=== PATIENT | male | born 1940 | race Caucasian/White ===

== ENCOUNTER 2020-06-23 22:03 | Inpatient (IN) | payer OTHER, SELFPAY ==
[2020-06-23 22:04] VITALS: BP 113/88; PULSE 101; RESP 18; TEMP 37.2; O2SAT 95; BMI 29.9
--- NOTE | 2020-06-23 22:23 | CT_ITS ---
STUDY: CT BRAIN WITHOUT CONTRAST REASON FOR EXAM: Male, 79 years old. ALTERED MENTAL STATUS AND CONFUSION SINCE 5PM TODAY -- PRIOR HX OF TIA RADIATION DOSAGE (If Supplied By Facility): CTDIvol = ( 44.99 ) mGy, DLP = ( 1592.22 ) mGycm TECHNIQUE: Transaxial CT imaging of the brain was performed without administration of intravenous contrast material. Individualized dose optimization techniques were used for this CT. COMPARISON: No relevant priors. FINDINGS: Normal soft tissue structures. Normal calvarium. There is mild cerebral atrophy with widening of the extra-axial spaces and ventricular dilatation. There are old lacunar infarcts of the right basal ganglia and left insular lobe. There are areas of decreased attenuation within the white matter tracts of the supratentorial brain, consistent with microvascular disease changes. The thalami appear normal. Normal brainstem. There is mild cerebellar atrophy. There is no intracranial hemorrhage. There are no findings of an acute ischemic infarction. There is opacification of the left and right maxillary sinuses, left frontal sinus, and multiple ethmoid air cells bilaterally. CT/Brain/Head without Contrast IMPRESSION: Chronic involutional changes of the brain. Old lacunar infarcts of the right basal ganglia and left insular lobe. Severe chronic pansinusitis. Electronically Signed: Maurilio Vinse MD at 23:17 EDT , Service support ,
--- NOTE | 2020-06-23 22:23 | EKG12_ITS ---
Test Reason : DYSRHYTHMIA Blood Pressure : / mmHG Vent. Rate : 093 BPM Atrial Rate : 093 BPM P-R Int : 178 ms QRS Dur : 138 ms QT Int : 380 ms P-R-T Axes : 062 040 041 degrees QTc Int : 472 ms Normal sinus rhythm Right bundle branch block Abnormal ECG Confirmed by NISHA VALENTINO, HERI ([id number]), desk editor ADIN GALLO ([id number]) on 06/28/2020 8:26:39 AM Referred By: IVY Confirmed By:STEPH CAMERON MD
--- NOTE | 2020-06-23 22:24 | ED.DCSUM_ITS ---
History of Present Illness Chief Complaint: Confusion Informant: Patient, Family Onset: Today Context: - - noticed around 1800, 4-4.5 hrs prior to arrival Quality: disoriented, forgetful Current Severity: Moderate Maximum Severity: Moderate Worsened by: n/a Relieved by: n/a Associated Symptoms: right leg pain, generalized weakness Narrative: Patient lives with some family members, however the family member that accompanies him does not live with him, 1 of his sons. He states this is very u nusual for him, for him to be confused and disoriented, which started today. Patient has no complaints except for soreness in his right lower leg. He does not know how long it has felt that way. States he feels a little weak as well but denies all other review of systems. 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 He denies any feeling of differences right now. - Past Medical History (1) Stroke Status: Chronic (2) Infantile paralysis Status: Chronic Past Medical History - Allergies and Home Meds Allergies/Adverse Reactions: Allergies No Known Allergies Allergy (Verified 06/23/20 22:06) Primary Care Physician: [facility] Doctor,Out of [NON-STAFF] - Lives: With Family Alcohol: None Drugs: None Review of Systems General: Reports: Malaise. Denies: Chills, Fever, Sweats Eyes: Denies: Visual changes - bilaterally, Diplopia ENT: Reports: Rhinorrhea - Past day or 2. Denies: Bilateral ear pain, Sore throat Cardiovascular: Denies: Chest pain, Palpitations Respiratory: Denies: Dyspnea, Cough, Dyspnea on exertion, Orthopnea Gastrointestinal: Denies: Abdominal pain, Nausea, Vomiting, Diarrhea, Melena, Hematochezia Genitourinary: Denies: Dysuria, Hematuria, Frequency Musculoskeletal: Reports: Extremity Pain. Denies: Myalgias, Neck pain, Back pain Skin: Denies: Rash - Not the patient knows of, Abscess, Wounds Neurological: Denies: Headache, Weakness, Numbness Physical Exam Vital Signs/Narrative: Vital Signs Temp Pulse Resp BP Pulse Ox 06/23/20 22:04 98.9 F 101 H 18 113/88 H 95 NIH Stroke Scale/Score (NIHSS) from [facility] on 06/23/2020 All calculations should be rechecked by clinician prior to use RESULT SUMMARY: 2 points NIH Stroke Scale INPUTS: 1A: Level of consciousness ?> 0 = Alert; keenly responsive 1B: Ask month and age ?> 0 = Both questions right 1C: 'Blink eyes' & 'squeeze hands' ?> 0 = Performs both tasks 2: Horizontal extraocular movements ?> 0 = Normal 3: Visual chatman ?> 0 = No visual loss 4: Facial palsy ?> 0 = Normal symmetry 5A: Left arm motor drift ?> 0 = No drift for 10 seconds 5B: Right arm motor drift ?> 0 = No drift for 10 seconds 6A: Left leg motor drift ?> 0 = No drift for 5 seconds 6B: Right leg motor drift ?> 0 = No drift for 5 seconds 7: Limb Ataxia ?> 2 = Ataxia in 2 Limbs 8: Sensation ?> 0 = Normal; no sensory loss 9: Language/aphasia ?> 0 = Normal; no aphasia 10: Dysarthria ?> 0 = Normal 11: Extinction/inattention ?> 0 = No abnormality Inital Vital Signs reviewed: Yes General: Well nourished, Well developed, No Acute Distress Head: Normocephalic, Atraumatic Eyes: Perrl, EOMI ENT: Moist mucous membranes, No rhinorrhea Neck: Supple, Nontender Cardiovascular: Regular rate, Regular rhythm, No murmurs Respiratory: No distress, CTA bilaterally, Chest nontender Abdomen: Soft, Nontender, Nondistended, Normal bowel sounds Back: Nontender, Normal Inspection Extremities: Tenderness - Mild at erythema right lower leg consistent with cellulitis, Edema - Mild symmetric bilateral lower extremity mid arora. Negative for: Calf Tenderness Skin: Normal color, No Trauma, Rash - Mildly tender blanching erythema right lower leg, distal half. Does not involve the foot. No nidus for infection, no abscess. No lymphangitis. Neurological: Alert, Cranial nerves II-XII grossly intact, Normal Sensation, Disoriented - To the month and city he is in right now. Oriented to person, his age, state, and family., - - Has some trouble with [id number] on the right. Is apparently more because of confusion than ataxia however. Unable to perform bpnw-ss-calm bilaterally although strength is normal. No aphasia or dysarthria. NIHSS - 3 Psychological: Normal affect, Normal Mood Diagnostic/Tx/Re-eval Impressions Brain CT 06/23/20 22:23 IMPRESSION: Chronic involutional changes of the brain. Old lacunar infarcts of the right basal ganglia and left insular lobe. Severe chronic pansinusitis. Electronically Signed: Maurilio Vines MD at 23:17 EDT , Service support , Chest X-Ray 06/23/20 22:55 IMPRESSION: Borderline heart size. Calcified plaques of the aortic arch. There may be a small left-sided pleural effusion. Electronically Signed: Maurilio Vines MD at 23:14 EDT , Service support , 06/23/20 22:23 CT Brain [Brain/Head without Contrast] [CT] Stat 06/23/20 22:55 Chest 1 View (Portable) [RAD] Stat Laboratory Results 06/23/20 06/23/20 06/23/20 22:20 22:20 22:20 WBC 21.2 H RBC 4.38 L Hgb 14.3 Hct 43.3 MCV 98.9 H MCH 32.6 H MCHC 33.0 RDW Std Deviation 49.3 H RDW Coeff of Cameron 13.4 Plt Count 304 MPV 9.5 Immature Gran % (Auto) 0.600 Neut % (Auto) 87.3 H Lymph % (Auto) 2.9 L [place] % (Auto) 8.8 Eos % (Auto) 0.1 Baso % (Auto) 0.3 Absolute Neuts (auto) 18.6 H Absolute Lymphs (auto) 0.61 L Nucleated RBC % 0 Differential Comment SEE COMMENT Diff Path Review May foll Platelet Estimate ADEQUATE RBC Morphology N CHROM Anisocytosis RARE Macrocytosis RARE PT 13.8 INR 1.1 APTT 30.2 Sodium 138 Potassium 4.0 Chloride 107 Carbon Dioxide 25.0 Anion Gap 6 BUN 27 H Creatinine 1.20 Estim Creat Clear Calc 44.13 Est GFR (MDRD) Af Amer 75 Est GFR (MDRD) Non-Af 62 BUN/Creatinine Ratio 22.5 H Glucose 114 H Lactic Acid Calcium 8.8 Total Bilirubin 0.30 AST 16 ALT 22 Alkaline Phosphatase 98 Troponin I < 0.015 Total Protein 7.6 Albumin 3.7 Globulin 3.9 Albumin/Globulin Ratio 0.9 Urine Color Urine Clarity Urine pH Ur Specific [place] Urine Protein Urine Glucose (UA) Urine Ketones Urine Occult Blood Urine Nitrite Urine Bilirubin Urine Urobilinogen Ur Leukocyte Esterase Urine RBC Urine WBC Ur Squamous Epith Cells Urine Bacteria Urine Mucus 06/23/20 06/23/20 22:35 22:45 WBC RBC Hgb Hct MCV MCH MCHC RDW Std Deviation RDW Coeff of Cameron Plt Count MPV Immature Gran % (Auto) Neut % (Auto) Lymph % (Auto) [place] % (Auto) Eos % (Auto) Baso % (Auto) Absolute Neuts (auto) Absolute Lymphs (auto) Nucleated RBC % Differential Comment Diff Path Review Platelet Estimate RBC Morphology Anisocytosis Macrocytosis PT INR APTT Sodium Potassium Chloride Carbon Dioxide Anion Gap BUN Creatinine Estim Creat Clear Calc Est GFR (MDRD) Af Amer Est GFR (MDRD) Non-Af BUN/Creatinine Ratio Glucose Lactic Acid 1.6 Calcium Total Bilirubin AST ALT Alkaline Phosphatase Troponin I Total Protein Albumin Globulin Albumin/Globulin Ratio Urine Color Yellow Urine Clarity Clear Urine pH 5.0 Ur Specific [place] 1.015 Urine Protein 30 H Urine Glucose (UA) Normal Urine Ketones Negative Urine Occult Blood 25 H Urine Nitrite Negative Urine Bilirubin Negative Urine Urobilinogen Normal Ur Leukocyte Esterase Negative Urine RBC 0-5 SEEN Urine WBC 0-5 SEEN Ur Squamous Epith Cells 0 SEEN Urine Bacteria 0 SEEN Urine Mucus 0 SEEN - Rhythm Strip Rhythm Strip: Sinus Rhythm Rate: 93 Ectopy: None - EKG Initial EKG Interpretation: Sinus Rhythm, No Acute Injury Pattern, RBBB Prior: No Prior - Medical Decision Making Work-up shows a leukocytosis, imaging shows chronic abnormalities, possibly a small left-sided pleural effusion which I cannot auscultate any abnormality associated with. My suspicion is that he is altered due to infection, namely the cellulitis in his right lower leg. Started on Zosyn and plan is for admission. ED Disposition - Plan for ED Patient: Disposition: [facility] Diagnosis: Altered mental status, Cellulitis of right lower leg, Sepsis Referrals: [facility] Doctor,Out of [NON-STAFF] -
[2020-06-23 22:35] VITALS: O2SAT 95
[2020-06-23 22:36] LABS: Absolute Lymphocyte Count 0.61 X10^3/uL (0.83-4.51); Absolute Neutrophil Count 18.6 X10^3/uL (2.0-7.7); Basophil# 0.07 X10^3/uL; Basophil% 0.3 % (0-1); Eosinophil# 0.02 X10^3/uL; Eosinophils% 0.1 % (0-5); Hematocrit 43.3 % (40-54); Hemoglobin 14.3 g/dL (13.0-16.5); Lymphocyte # 0.61 X10^3/ul (4.0); Lymphocyte % 2.9 % (19-41); Mean Corpuscular Hgb 32.6 pg (27.0-32.0); Mean Corpuscular Volume 98.9 fL (80-94); Mean Platelet Vol. 9.5 fl (6.2-12.0); Monocyte# 1.86 X10^3/uL; Monocyte% 8.8 % (0-10); NRBC Flagged by Analyzer 0 % (0-5); Neutrophil # 18.55 X10^3/uL (2.7-7.7); Neutrophil % 87.3 % (47-70); POSITIVE DIFFERENTIAL YES; Platelet Count 304 K/mm3 (150-450); RBC Distribution Width CV 13.4 % (11.6-14.6); RBC Distribution Width SD 49.3 fl (35.1-43.9); Red Blood Count 4.38 M/mm3 (4.6-6.2); White Blood Count 21.2 K/mm3 (4.4-11.0)
[2020-06-23 22:40] LABS: Differential Indicated SCAN CRITERIA MET
[2020-06-23 22:41] LABS: International Normalized Ratio 1.1; Partial Thromboplast Time 30.2 Seconds (24.1-36.2); Prothrombin Time (Protime)PT. 13.8 SECONDS (11.7-14.9)
[2020-06-23] MEDS: 0.9% Normal Saline 1,000 ML 150 ML IV (22:45)
[2020-06-23 22:51] VITALS: BP 158/60; PULSE 92; RESP 16; O2SAT 95
[2020-06-23 22:52] LABS: ALB/GLOB Ratio 0.9 RATIO (0.9-2.4); AST(SGOT) 16 U/L (15-37); Alanine Aminotransfer ALT/SGPT 22 U/L (16-61); Albumin, Serum 3.7 g/dL (3.2-5.0); Alkaline Phosphatase 98 U/L (45-117); Anion Gap 6 (5-15); BUN 27 mg/dL (7-18); BUN/Creat Ratio 22.5 RATIO (10-20); Calcium,Total 8.8 mg/dL (8.5-10.1); Chloride 107 mmol/L (98-107); EST Glomerular Filtration Rate 62 mL/min (>60); Est Glom Filt Rate - Afr Amer 75 mL/min (>60); Estimated Creatinine Clearance 44.13 ml/min; Globulin 3.9 g/dL (2.2-4.2); Glucose 114 mg/dL (74-106); Protein, Total 7.6 g/dL (6.4-8.2); Sodium Level 138 mmol/L (136-145)
[2020-06-23 22:53] LABS: Bacteria 0 SEEN /hpf (None Seen); Mucous, Urine 0 SEEN /hpf (<or=2+); Squamous Epithelial Cells - UA 0 SEEN /hpf (0-5)
[2020-06-23 22:55] LABS: Color, Urine Yellow (Yellow); Glucose, Dipstick Normal (Normal); Ketone-Dipstick Negative (Negative); Leukocyte Esterase-Dipstick Negative /ul (Negative); Nitrite-Dipstick Negative (Negative); Occult Blood-Urine 25 /ul (Negative); Protein-Dipstick 30 mg/dl (Negative); Specific Gravity, Urine 1.015 (1.002-1.030); Urine Bilirubin Dipstick Negative (Negative); Urine Clarity Clear (Clear); Urine Urobilinogen Normal (Normal)
--- NOTE | 2020-06-23 22:55 | RAD_ITS ---
STUDY: X-RAY CHEST REASON FOR EXAM: Male, 79 years old. altered mental status TECHNIQUE: Single AP portable view of the chest. COMPARISON: None. FINDINGS: surveillance monitor leads are present. The lungs are clear and expanded. There may be a small left-sided effusion. There is borderline cardiomegaly. Normal mediastinum and wade. Normal visualized pulmonary arteries. There are calcified plaques of the aortic arch. Normal visualized thoracic spine. Normal visualized ribs, clavicles, and shoulders. There is no demonstrated abnormality of the visualized soft tissue structures of the upper abdomen. RAD/Chest 1 View (Portable) IMPRESSION: Borderline heart size. Calcified plaques of the aortic arch. There may be a small left-sided pleural effusion. Electronically Signed: Maurilio Vines MD at 23:14 EDT , Service support ,
[2020-06-23 23:03] LABS: Red Blood Cells-Urine 0-5 SEEN /hpf (0-5)
[2020-06-23 23:04] LABS: White Blood Cells 0-5 SEEN /hpf (0-5)
[2020-06-23 23:12] LABS: Anisocytosis RARE; Macrocytosis RARE; Platelet Estimate ADEQUATE (ADEQ); Red Cell Morphology N CHROM NORMAL (NORM C&C)
[2020-06-23 23:26] LABS: Lactic Acid 1.6 mmol/L (0.4-1.9)
[2020-06-23 23:40] VITALS: BP 157/64; PULSE 87; RESP 13; TEMP 37.4; O2SAT 93
[2020-06-24] VITALS (12 sets, daily range): BP systolic 113–163; BP diastolic 51–77; PULSE 59–96; RESP 16; TEMP 36.8–37.7; O2SAT 95–100; BMI 31.6
[2020-06-24] MEDS: Cefazolin 2 GM in 0.9% Normal Saline 100 ML IV (00:58)
--- NOTE | 2020-06-24 01:40 | HP.PCM_ITS ---
History of Present Illness Date of Admission: 06/24/20 Chief Complaint: Altered mental status The patient is a 79 year old M with PMH as below who presents with confusion from home. Started around 6 PM this evening. He states that he started noticing some redness on his right lower extremity with a little bit of pain for the last 2 days. He denies any fevers or chills and does know where he is and what year it is. In the ER his lactic acid was normal as was his creatinine. He did have an elevated white count of 21 and when he initially presented he was tachycardic. UA was unremarkable, chest x-ray did not show pneumonia. Brain CT was normal. Past Medical History Past Medical History (Chronic Problems): Chronic Problems Stroke (Chronic) Infantile paralysis (Chronic) Allergies No Known Allergies Allergy (Verified 06/23/20 22:06) Home Medications: Ambulatory Orders Medication Instructions Recorded Amlodipine [Norvasc] 5 mg PO DAILY 06/23/20 Aspirin [Aspirin, Baby] 81 mg PO DAILY@0800 06/23/20 Atorvastatin Calcium 10 mg PO DAILY 06/23/20 Hydrochlorothiazide [Hctz] 12.5 mg PO DAILY 06/23/20 Lisinopril 40 mg PO DAILY 06/23/20 Oxcarbazepine 300 mg PO TID 06/23/20 Surgical History: no surgical history Lives: With Family Smoking Status: Former smoker Tobacco Use: Cigarettes Alcohol: None Drugs: None - *Family History Maternal History Items: Heart Disease, Hypertension Paternal History Items: Stroke Review of Systems Constitutional: Denies: Chills, Fever, Weight Change HEENT: Denies: Head Aches, Sinus Congestion, Sinus Drainage Cardiovascular: Denies: Chest Pain, Palpitations Respiratory: Denies: Cough, Shortness of breath at rest, Sputum production Gastrointestinal: Denies: Abdominal Pain, Nausea, Vomiting Genitourinary: Denies: Dysuria Musculoskeletal: Denies: Joint Pain, Joint Tenderness Skin: Reports: Rash - Right lower extremity. Denies: Wounds Neurological: Reports: Confusion. Denies: Focal weakness, Numbness, Tingling Psychiatric: Denies: Anxiety, Depression Hematologic/ Lymphatic: Denies: Easy Bruising, Easy Bleeding VTE Information - Inpt Only VTE Present on Admission: No Patient Problems: Active and Suspected Problems Altered mental status (Acute) Cellulitis of right lower leg (Acute) Sepsis (Acute) - Physical Exam Vitals/I&O's: Vital Signs Temp Pulse Resp BP Pulse Ox 98.5 F 89 16 163/77 H 96 06/24/20 01:01 06/24/20 01:01 06/24/20 01:01 06/24/20 01:01 06/24/20 01:01 Oxygen Delivery Method Room Air Weight: 180 lb Body Mass Index (BMI) 29.9 General: Alert, Oriented x3, Cooperative, No apparent distress HEENT: Atraumatic, PERRLA, EOMI, Normocephalic Oral: Moist Mucosa Neck: Supple, No JVD Lungs: Clear to auscultation, Normal air movement, No rhonchi, No wheeze, No rales Cardiovascular: Regular rate, Regular Rhythm, Normal S1, Normal S2, No murmurs Abdomen: Soft, Non Tender, Non-Distended, No Hepato-splenomegaly Extremities: No edema, Capillary Refill Less than 3 Seconds Skin: Rash Present - Right lower extremity erythema extending from the ankle to mid arora Neurological: Neuro grossly intact, Sensory exam intact to light touch and pain Psych/Mental Status: Normal Affect, Appropriate Laboratory Results 06/23/20 22:20: WBC 21.2 H, RBC 4.38 L, Hgb 14.3, Hct 43.3, MCV 98.9 H, MCH 32.6 H, MCHC 33.0, RDW Std Deviation 49.3 H, RDW Coeff of Cameron 13.4, Plt Count 304, MPV 9.5, Immature Gran % (Auto) 0.600, Neut % (Auto) 87.3 H, Lymph % (Auto) 2.9 L, [place] % (Auto) 8.8, Eos % (Auto) 0.1, Baso % (Auto) 0.3, Absolute Neuts (auto) 18.6 H, Absolute Lymphs (auto) 0.61 L, Nucleated RBC % 0, Differential Comment SEE COMMENT, Diff Path Review January foll, Platelet Estimate ADEQUATE, RBC Morphology N CHROM, Anisocytosis RARE, Macrocytosis RARE 06/23/20 22:20: PT 13.8, INR 1.1, APTT 30.2 06/23/20 22:20: Sodium 138, Potassium 4.0, Chloride 107, Carbon Dioxide 25.0, Anion Gap 6, BUN 27 H, Creatinine 1.20, Estim Creat Clear Calc 44.13, Est GFR (MDRD) Af Amer 75, Est GFR (MDRD) Non-Af 62, BUN/Creatinine Ratio 22.5 H, Glucose 114 H, Calcium 8.8, Total Bilirubin 0.30, AST 16, ALT 22, Alkaline Phosphatase 98, Troponin I < 0.015, Total Protein 7.6, Albumin 3.7, Globulin 3.9, Albumin/Globulin Ratio 0.9 06/23/20 22:35: Lactic Acid 1.6 06/23/20 22:45: Urine Color Yellow, Urine Clarity Clear, Urine pH 5.0, Ur Specific [place] 1.015, Urine Protein 30 H, Urine Glucose (UA) Normal, Urine Ketones Negative, Urine Occult Blood 25 H, Urine Nitrite Negative, Urine Bilirubin Negative, Urine Urobilinogen Normal, Ur Leukocyte Esterase Negative, Urine RBC 0-5 SEEN, Urine WBC 0-5 SEEN, Ur Squamous Epith Cells 0 SEEN, Urine Bacteria 0 SEEN, Urine Mucus 0 SEEN Current Medications Sodium Chloride () 1,000 mls @ 150 mls/hr IV .Q6H40M [facility] Last Admin: 06/23/20 22:45 Dose: 150 mls/hr Documented by: Assessment/Plan All Active Problems Altered mental status (Acute) Cellulitis of right lower leg (Acute) Sepsis (Acute) 1. Sepsis secondary to right lower extremity cellulitis, sepsis has resolved/altered mental status also resolved -He did get a dose of Ancef in the ER, will continue -White blood cell count of 21,000 -Continue with IV fluids -UA was unremarkable but urine culture is pending -Blood cultures are pending 2. HTN/HLD/history of CVA -Blood pressure stable, can continue with Norvasc, hydrochlorothiazide, lisinopril -Continue with Lipitor 3. Seizure disorder -Stable -Continue with oxcarbazepine DVT: Lovenox Inpatient E&M: 51056 Init Hosp L2
[2020-06-24] MEDS: 0.9% Normal Saline 1,000 ML 100 ML IV ×3 (02:00→21:08)
[2020-06-24] MEDS: Acetaminophen 325 MG Tablet 650 MG PO (02:43)
[2020-06-24] MEDS: MELATONIN 3 MG TABLET PO ×2 (02:43→21:10)
[2020-06-24 06:05] LABS: Absolute Lymphocyte Count 1.16 X10^3/uL (0.83-4.51); Absolute Neutrophil Count 19.6 X10^3/uL (2.0-7.7); Basophil# 0.07 X10^3/uL; Basophil% 0.3 % (0-1); Eosinophil# 0.17 X10^3/uL; Eosinophils% 0.7 % (0-5); Hematocrit 36.9 % (40-54); Hemoglobin 12.2 g/dL (13.0-16.5); Lymphocyte # 1.16 X10^3/ul (4.0); Lymphocyte % 4.9 % (19-41); Mean Corp Hgb Conc 33.1 g/dL (32-36); Mean Corpuscular Hgb 32.4 pg (27.0-32.0); Mean Corpuscular Volume 98.1 fL (80-94); Mean Platelet Vol. 9.4 fl (6.2-12.0); Monocyte# 2.37 X10^3/uL; Monocyte% 10.1 % (0-10); NRBC Flagged by Analyzer 0 % (0-5); Neutrophil # 19.56 X10^3/uL (2.7-7.7); Neutrophil % 83.4 % (47-70); POSITIVE DIFFERENTIAL YES; POSITIVE MORPHOLOGY YES; Platelet Count 245 K/mm3 (150-450); RBC Distribution Width CV 13.5 % (11.6-14.6); RBC Distribution Width SD 49.1 fl (35.1-43.9); Red Blood Count 3.76 M/mm3 (4.6-6.2); White Blood Count 23.5 K/mm3 (4.4-11.0)
[2020-06-24 06:08] LABS: Differential Indicated SCAN CRITERIA MET
[2020-06-24] MEDS: Cefazolin 1 GM/50 ML BAG IV (06:08)
[2020-06-24] MEDS: OXcarbazepine 300 MG Tablet PO ×3 (06:10→21:06)
[2020-06-24] MEDS: Oxymetazoline 0.05% 1 SPRAY SPRAY.BTL NASAL ×2 (06:23→21:10)
[2020-06-24 06:27] LABS: Anion Gap 6 (5-15); BUN 25 mg/dL (7-18); BUN/Creat Ratio 22.3 RATIO (10-20); Calcium,Total 8.1 mg/dL (8.5-10.1); Chloride 109 mmol/L (98-107); Creatinine, Serum 1.12 mg/dL (0.70-1.30); EST Glomerular Filtration Rate 67 mL/min (>60); Est Glom Filt Rate - Afr Amer 81 mL/min (>60); Estimated Creatinine Clearance 47.28 ml/min; Glucose 111 mg/dL (74-106); Potassium 3.6 mmol/L (3.5-5.1); Sodium Level 139 mmol/L (136-145)
[2020-06-24 06:30] LABS: Differential Comment SCANNED
[2020-06-24] MEDS: Aspirin 81 MG TAB.CHEW PO (08:56)
[2020-06-24] MEDS: Enoxaparin 40 MG/0.4 ML Syringe SC (08:57)
[2020-06-24] MEDS: hydroCHLOROthiazide 12.5mg 12.5 MG PO (08:57)
[2020-06-24] MEDS: amLODIPine 5 MG Tablet PO (08:57)
[2020-06-24] MEDS: Lisinopril 40 MG Tablet PO (08:57)
--- NOTE | 2020-06-24 12:31 | PCM.PROGNOTE ---
Patient Problems: Active and Suspected Problems Altered mental status (Acute) Cellulitis of right lower leg (Acute) Sepsis (Acute) Subjective: Patient seen and examined. Reports significant improvement in right lower extremity redness. Decreased pain. Denies further fever, chills. - Physical Exam Vitals/I&O's: Vital Signs Temp Pulse Resp BP Pulse Ox 98.9 F 75 16 154/64 H 96 06/24/20 07:48 06/24/20 10:52 06/24/20 07:48 06/24/20 07:48 06/24/20 07:48 Oxygen Delivery Method Room Air Weight: 189 lb 13.088 oz Body Mass Index (BMI) 31.6 Intake and Output for Last 24 Hours 06/22/20 06/23/20 06/24/20 23:59 23:59 23:59 Intake Total 2425 / 2425 Output Total 150 / 150 Balance 2275 / 2275 General: Alert, Oriented x3, Cooperative HEENT: Atraumatic, PERRLA, EOMI, Normocephalic Neck: Supple, No JVD, Negative Carotid Bruits Lungs: Clear to auscultation, Normal air movement Cardiovascular: Regular rate, No murmurs Abdomen: Bowel Sounds Present, Soft, Non Tender, Non-Distended Extremities: No clubbing, No cyanosis, No edema, Capillary Refill Less than 3 Seconds Skin: - - Right lower extremity redness and warmth, improving. Musculoskeletal: No Tenderness to Palpation of Joints or Extremities Neurological: Cranial nerves II-XII grossly intact, - - Chronic right-sided hemiparesis Psych/Mental Status: Normal Affect Laboratory Results 06/23/20 22:20: WBC 21.2 H, RBC 4.38 L, Hgb 14.3, Hct 43.3, MCV 98.9 H, MCH 32.6 H, MCHC 33.0, RDW Std Deviation 49.3 H, RDW Coeff of Cameron 13.4, Plt Count 304, MPV 9.5, Immature Gran % (Auto) 0.600, Neut % (Auto) 87.3 H, Lymph % (Auto) 2.9 L, [place] % (Auto) 8.8, Eos % (Auto) 0.1, Baso % (Auto) 0.3, Absolute Neuts (auto) 18.6 H, Absolute Lymphs (auto) 0.61 L, Nucleated RBC % 0, Differential Comment SEE COMMENT, Diff Path Review January ferny, Platelet Estimate ADEQUATE, RBC Morphology N CHROM, Anisocytosis RARE, Macrocytosis RARE 06/23/20 22:20: PT 13.8, INR 1.1, APTT 30.2 06/23/20 22:20: Sodium 138, Potassium 4.0, Chloride 107, Carbon Dioxide 25.0, Anion Gap 6, BUN 27 H, Creatinine 1.20, Estim Creat Clear Calc 44.13, Est GFR (MDRD) Af Amer 75, Est GFR (MDRD) Non-Af 62, BUN/Creatinine Ratio 22.5 H, Glucose 114 H, Calcium 8.8, Total Bilirubin 0.30, AST 16, ALT 22, Alkaline Phosphatase 98, Troponin I < 0.015, Total Protein 7.6, Albumin 3.7, Globulin 3.9, Albumin/Globulin Ratio 0.9 06/23/20 22:35: Lactic Acid 1.6 06/23/20 22:45: Urine Color Yellow, Urine Clarity Clear, Urine pH 5.0, Ur Specific [place] 1.015, Urine Protein 30 H, Urine Glucose (UA) Normal, Urine Ketones Negative, Urine Occult Blood 25 H, Urine Nitrite Negative, Urine Bilirubin Negative, Urine Urobilinogen Normal, Ur Leukocyte Esterase Negative, Urine RBC 0-5 SEEN, Urine WBC 0-5 SEEN, Ur Squamous Epith Cells 0 SEEN, Urine Bacteria 0 SEEN, Urine Mucus 0 SEEN 06/24/20 05:25: WBC 23.5 H, RBC 3.76 L, Hgb 12.2 L, Hct 36.9 L, MCV 98.1 H, MCH 32.4 H, MCHC 33.1, RDW Std Deviation 49.1 H, RDW Coeff of Cameron 13.5, Plt Count 245, MPV 9.4, Immature Gran % (Auto) 0.600, Neut % (Auto) 83.4 H, Lymph % (Auto) 4.9 L, [place] % (Auto) 10.1 H, Eos % (Auto) 0.7, Baso % (Auto) 0.3, Absolute Neuts (auto) 19.6 H, Absolute Lymphs (auto) 1.16, Nucleated RBC % 0, Differential Comment SCANNED, Diff Path Review Jayleen isaacs 06/24/20 05:25: Sodium 139, Potassium 3.6, Chloride 109 H, Carbon Dioxide 24.0, Anion Gap 6, BUN 25 H, Creatinine 1.12, Estim Creat Clear Calc 47.28, Est GFR (MDRD) Af Amer 81, Est GFR (MDRD) Non-Af 67, BUN/Creatinine Ratio 22.3 H, Glucose 111 H, Calcium 8.1 L Current Medications Acetaminophen (Tylenol) 650 mg PO Q6H PRN PRN PRN Reason: Pain Score 1-10/Temp > 100.7 F Last Admin: 06/24/20 02:43 Dose: 650 mg Documented by: Amlodipine Besylate (Norvasc) 5 mg PO DAILY [facility] Last Admin: 06/24/20 08:57 Dose: 5 mg Documented by: Aspirin (Aspirin, Baby) 81 mg PO DAILY@0800 [facility] Last Admin: 06/24/20 08:56 Dose: 81 mg Documented by: Atorvastatin Calcium (Lipitor) 10 mg PO QHS [facility] Enoxaparin Sodium (Lovenox) 40 mg SC DAILY [facility] Last Admin: 06/24/20 08:57 Dose: 40 mg Documented by: Hydrochlorothiazide () 12.5 mg PO DAILY [facility] Last Admin: 06/24/20 08:57 Dose: 12.5 mg Documented by: Sodium Chloride () 1,000 mls @ 100 mls/hr IV .Q10H [facility] Last Admin: 06/24/20 11:39 Dose: 100 mls/hr Documented by: Cefazolin Sodium () 1 gm in 50 mls @ 100 mls/hr IV Q8 [facility] Last Infusion: 06/24/20 07:24 Dose: Infused Documented by: Lisinopril (Zestril) 40 mg PO DAILY [facility] Last Admin: 06/24/20 08:57 Dose: 40 mg Documented by: Melatonin (Melatonin) 3 mg PO QHS PRN PRN PRN Reason: INSOMNIA Last Admin: 06/24/20 02:43 Dose: 3 mg Documented by: Ondansetron HCl (Zofran) 4 mg IV Q8H PRN PRN PRN Reason: NAUSEA/VOMITING Oxcarbazepine (Trileptal) 300 mg PO TID [facility] Last Admin: 06/24/20 06:10 Dose: 300 mg Documented by: Oxymetazoline HCl (Afrin (Bkc)) 1 spray NASAL BID PRN PRN Reason: SINUS CONGESTION Last Admin: 06/24/20 06:23 Dose: 1 spray Documented by: Sodium Chloride () 10 - 40 ml IV UD PRN PRN Reason: SALINE FLUSH Medical Necessity - Tobacco Use Smoking Status: Former smoker Tobacco Use: Cigarettes Assessment/Plan All Active Problems Altered mental status (Acute) Cellulitis of right lower leg (Acute) Sepsis (Acute) 1. Sepsis secondary to right lower extremity cellulitis-improving. Continue IV Rocephin. Blood cultures pending. PRN pain regimen. 2. Acute infectious encephalopathy-secondary to #1. Improved. Continue treatment per above. 3. History of CVA-chronic right-sided hemiplegia. Continue aspirin, statin. PT/OT. 4. Hypertension-stable, continue amlodipine, HCTZ, lisinopril. 5. Hyperlipidemia-continue statin. 6. History of seizures-on oxcarbazepine. DVT prophylaxis-Lovenox subcu This patient was seen by ANGELY Resendiz under the supervision of Dr. Rivera.
[2020-06-24] MEDS: Atorvastatin Calcium 10 MG Tablet PO (21:06)
[2020-06-25] VITALS: BP 133/62; PULSE 76; RESP 14; TEMP 36.8; O2SAT 95
[2020-06-25 05:47] LABS: Hematocrit 37.6 % (40-54); Hemoglobin 12.4 g/dL (13.0-16.5); Mean Corpuscular Hgb 32.9 pg (27.0-32.0); Mean Corpuscular Volume 99.7 fL (80-94); Mean Platelet Vol. 9.2 fl (6.2-12.0); Platelet Count 245 K/mm3 (150-450); RBC Distribution Width CV 13.6 % (11.6-14.6); RBC Distribution Width SD 49.7 fl (35.1-43.9); Red Blood Count 3.77 M/mm3 (4.6-6.2); White Blood Count 14.7 K/mm3 (4.4-11.0)
[2020-06-25 06:00] VITALS: BP 145/69; PULSE 73; RESP 18; TEMP 36.9; O2SAT 97
[2020-06-25 06:02] LABS: Anion Gap 5 (5-15); BUN 22 mg/dL (7-18); BUN/Creat Ratio 23.8 RATIO (10-20); Calcium,Total 8.1 mg/dL (8.5-10.1); Chloride 109 mmol/L (98-107); Creatinine, Serum 0.92 mg/dL (0.70-1.30); EST Glomerular Filtration Rate 84 mL/min (>60); Est Glom Filt Rate - Afr Amer 102 mL/min (>60); Estimated Creatinine Clearance 57.56 ml/min; Glucose 104 mg/dL (74-106); Potassium 3.8 mmol/L (3.5-5.1); Sodium Level 139 mmol/L (136-145)
[2020-06-25] MEDS: OXcarbazepine 300 MG Tablet PO (06:29)
[2020-06-25] MEDS: 0.9% Normal Saline 1,000 ML 100 ML IV (06:42)
[2020-06-25 06:59] VITALS: PULSE 66
[2020-06-25] MEDS: Aspirin 81 MG TAB.CHEW PO (07:56)
[2020-06-25] MEDS: Lisinopril 40 MG Tablet PO (09:23)
[2020-06-25] MEDS: amLODIPine 5 MG Tablet PO (09:23)
[2020-06-25] MEDS: hydroCHLOROthiazide 12.5mg 12.5 MG PO (09:23)
[2020-06-25] MEDS: Enoxaparin 40 MG/0.4 ML Syringe SC (09:27)
[2020-06-25 10:37] VITALS: BP 121/50; PULSE 79; RESP 20; TEMP 36.7; O2SAT 96
--- NOTE | 2020-06-25 10:51 | DCINST_ITS ---
- Discharge Diagnoses Current Active Problems: Current Active and Chronic Problems Altered mental status (Acute) Cellulitis of right lower leg (Acute) Sepsis (Acute) You will use the following diet at home:: Cardiac Discharge Activity: Return to Normal Activity Call your doctor if you observe: Fever of 101 or Higher, Shortness of breath, Dizziness, Fainting spells, Chest pain Allergies/Adverse Reactions: Allergies No Known Allergies Allergy (Verified 06/23/20 22:06) Medications to take at Discharge Amlodipine [Norvasc] 5 mg PO DAILY 06/23/20 Aspirin [Aspirin, Baby] 81 mg PO DAILY@0800 06/23/20 Atorvastatin Calcium 10 mg PO DAILY 06/23/20 Hydrochlorothiazide [Hctz] 12.5 mg PO DAILY 06/23/20 Lisinopril 40 mg PO DAILY 06/23/20 Oxcarbazepine 300 mg PO TID 06/23/20 Cefadroxil Hydrate [Duricef] 1,000 mg PO BID 7 Days #28 cap 06/25/20 The following prescriptions were given: Cefadroxil Hydrate [Duricef] 1,000 mg PO BID 7 Days #28 cap Transmission Status: Pending to [facility] Primary Care Physician: Shelley Doctor,Out of [NON-STAFF] - Please follow up with your Primary Care Physician in: 1 Week Test Results: Test results from this visit will be discussed in further detail at your follow- up appointment, if applicable. Proposed Discharge Date: 06/25/20
--- NOTE | 2020-06-25 10:53 | DS.PCM_ITS ---
<Maryanne Larsen DOCUMENTATION NURSE - Last Filed: 06/25/20 10:58> Discharge Date and Diagnosis Date of Admission: 06/24/20 Date of Discharge: 06/25/20 - Primary Discharge Diagnosis Acute Problems: Active Problems 1. Sepsis secondary to right lower extremity cellulitis 2. Acute infectious encephalopathy 3. History of CVA-chronic mild right-sided hemiplegia. 4. Hypertension 5. Hyperlipidemia 6. History of seizures - Secondary Discharge Diagnosis Chronic Problems: Chronic Problems Stroke (Chronic) Infantile paralysis (Chronic) Hospital Course and Treatment Imaging Results: Diagnostic Data Brain CT 06/23/20 22:23 IMPRESSION: Chronic involutional changes of the brain. Old lacunar infarcts of the right basal ganglia and left insular lobe. Severe chronic pansinusitis. Electronically Signed: Maurilio Vines MD at 23:17 EDT , Service support , Chest X-Ray 06/23/20 22:55 IMPRESSION: Borderline heart size. Calcified plaques of the aortic arch. There may be a small left-sided pleural effusion. Electronically Signed: Maurilio Vines MD at 23:14 EDT , Service support , Operations: None Procedures: None Summary of Care Provided: The patient is a 79 year old M admitted 06/24/2020 due to altered mental status and right lower extremity redness. 1. Sepsis secondary to right lower extremity cellulitis-improved. IV Rocephin during admission. Blood culture showed no growth so far. Right lower extremity redness and warmth significantly improved. Discharged on Duricef 1000 mg twice daily to complete course. 2. Acute infectious encephalopathy-secondary to #1. Now at baseline. 3. History of CVA-chronic right-sided hemiplegia. Continue aspirin, statin. 4. Hypertension-stable, continue amlodipine, HCTZ, lisinopril. 5. Hyperlipidemia-continue statin. 6. History of seizures-on oxcarbazepine. General: Alert, Oriented x3, Cooperative HEENT: Atraumatic, PERRLA, EOMI, Normocephalic Neck: Supple, No JVD, Negative Carotid Bruits Lungs: Clear to auscultation, Normal air movement Cardiovascular: Regular rate, No murmurs Abdomen: Bowel Sounds Present, Soft, Non Tender, Non-Distended Extremities: No clubbing, No cyanosis, No edema, Capillary Refill Less than 3 Seconds Skin: - - Right lower extremity redness and warmth, improving. Musculoskeletal: No Tenderness to Palpation of Joints or Extremities Neurological: Cranial nerves II-XII grossly intact, Chronic right-sided hemiparesis, mild Psych/Mental Status: Normal Affect Patient seen and examined prior to discharge. Physical assessment as noted above. Patient is stable for discharge with follow up recommendations as noted above. This patient was seen by ANGELY Resendiz under the supervision of Dr. King. - Physical Exam Vitals/I&O's: Vital Signs Temp Pulse Resp BP Pulse Ox 98.1 F 79 20 H 121/50 H 96 06/25/20 10:37 06/25/20 10:37 06/25/20 10:37 06/25/20 10:37 06/25/20 10:37 Oxygen Delivery Method Room Air Weight: 189 lb 13.088 oz Body Mass Index (BMI) 31.6 Intake and Output for Last 24 Hours 06/23/20 06/24/20 06/25/20 23:59 23:59 23:59 Intake Total 4563.33 / 4563.33 1006.67 / 1006.67 Output Total 150 / 425 675 / 675 Balance 4413.33 / 4138.33 331.67 / 331.67 Laboratory Results 06/25/20 05:25: WBC 14.7 H, RBC 3.77 L, Hgb 12.4 L, Hct 37.6 L, MCV 99.7 H, MCH 32.9 H, MCHC 33.0, RDW Std Deviation 49.7 H, RDW Coeff of Cameron 13.6, Plt Count 245, MPV 9.2 06/25/20 05:25: Sodium 139, Potassium 3.8, Chloride 109 H, Carbon Dioxide 25.0, Anion Gap 5, BUN 22 H, Creatinine 0.92, Estim Creat Clear Calc 57.56, Est GFR (MDRD) Af Amer 102, Est GFR (MDRD) Non-Af 84, BUN/Creatinine Ratio 23.8 H, Glucose 104, Calcium 8.1 L Current Medications Acetaminophen (Tylenol) 650 mg PO Q6H PRN PRN PRN Reason: Pain Score 1-10/Temp > 100.7 F Last Admin: 06/24/20 02:43 Dose: 650 mg Documented by: Amlodipine Besylate (Norvasc) 5 mg PO DAILY [facility] Last Admin: 06/25/20 09:23 Dose: 5 mg Documented by: Aspirin (Aspirin, Baby) 81 mg PO DAILY@0800 [facility] Last Admin: 06/25/20 07:56 Dose: 81 mg Documented by: Atorvastatin Calcium (Lipitor) 10 mg PO QHS [facility] Last Admin: 06/24/20 21:06 Dose: 10 mg Documented by: Enoxaparin Sodium (Lovenox) 40 mg SC DAILY [facility] Last Admin: 06/25/20 09:27 Dose: 40 mg Documented by: Hydrochlorothiazide () 12.5 mg PO DAILY [facility] Last Admin: 06/25/20 09:23 Dose: 12.5 mg Documented by: Sodium Chloride () 1,000 mls @ 100 mls/hr IV .Q10H [facility] Last Admin: 06/25/20 06:42 Dose: 100 mls/hr Documented by: Ceftriaxone Sodium 2 gm/ (Sodium Chloride) 50 mls @ 100 mls/hr IV Q24 [facility] Last Infusion: 06/25/20 10:00 Dose: Infused Documented by: Lisinopril (Zestril) 40 mg PO DAILY [facility] Last Admin: 06/25/20 09:23 Dose: 40 mg Documented by: Melatonin (Melatonin) 3 mg PO QHS PRN PRN PRN Reason: INSOMNIA Last Admin: 06/24/20 21:10 Dose: 3 mg Documented by: Ondansetron HCl (Zofran) 4 mg IV Q8H PRN PRN PRN Reason: NAUSEA/VOMITING Oxcarbazepine (Trileptal) 300 mg PO TID [facility] Last Admin: 06/25/20 06:29 Dose: 300 mg Documented by: Oxymetazoline HCl (Afrin (Bkc)) 1 spray NASAL BID PRN PRN Reason: SINUS CONGESTION Last Admin: 06/24/20 21:10 Dose: 1 spray Documented by: Sodium Chloride () 10 - 40 ml IV UD PRN PRN Reason: SALINE FLUSH Discharge Diet: Low fat/ Low Cholesterol Discharge Activity: Return to Normal Activity Call your doctor if you observe: Fever of 101 or Higher, Shortness of breath, Dizziness, Fainting spells, Chest pain Home Medications: Medications to take at Discharge Amlodipine [Norvasc] 5 mg PO DAILY 06/23/20 Aspirin [Aspirin, Baby] 81 mg PO DAILY@0800 06/23/20 Atorvastatin Calcium 10 mg PO DAILY 06/23/20 Hydrochlorothiazide [Hctz] 12.5 mg PO DAILY 06/23/20 Lisinopril 40 mg PO DAILY 06/23/20 Oxcarbazepine 300 mg PO TID 06/23/20 Cefadroxil Hydrate [Duricef] 1,000 mg PO BID 7 Days #28 cap 06/25/20 Following Prescriptions Were Given to Patient: Cefadroxil Hydrate [Duricef] 1,000 mg PO BID 7 Days #28 cap Transmission Status: Received by [facility] Primary Care Physician: Shelley Doctor,Out of [NON-STAFF] - Please follow up with your Primary Care Physician in: 1 Week Disposition: Home Minutes spent on discharge:: 35 Patient Condition:: Stable Medical Necessity - Tobacco Use Smoking Status: Former smoker Tobacco Use: Cigarettes Meaningful Use Info Meaningful Use Diagnoses (Choose all that apply): None applicable <Tanvir King - Last Filed: 06/25/20 11:28> Discharge Date and Diagnosis - Secondary Discharge Diagnosis Chronic Problems: Chronic Problems Stroke (Chronic) Infantile paralysis (Chronic) Hospital Course and Treatment Operations: None Procedures: None Summary of Care Provided: Patient seen and examined independently. Data reviewed. I agree with the above note by the nurse practitioner. The patient is a 79 year old M presents with right lower extremity redness. Patient was diagnosed with right lower extremity cellulitis and started on ceftriaxone. Patient responded and was discharged with Duricef to complete the treatment. Patient did have some encephalopathy that was likely due to the acute infection that has since resolved. Patient will be discharged home in stable condition. [] - Physical Exam Vitals/I&O's: Vital Signs Temp Pulse Resp BP Pulse Ox 36.7 C 79 20 H 121/50 H 96 06/25/20 10:37 06/25/20 10:37 06/25/20 10:37 06/25/20 10:37 06/25/20 10:37 Oxygen Delivery Method Room Air Weight: 86.1 kg Body Mass Index (BMI) 31.6 Intake and Output for Last 24 Hours 06/23/20 06/24/20 06/25/20 23:59 23:59 23:59 Intake Total 4563.33 / 4563.33 1466.67 / 1466.67 Output Total 150 / 425 675 / 675 Balance 4413.33 / 4138.33 791.67 / 791.67 General: Alert, No apparent distress HEENT: Atraumatic, Normocephalic Extremities: No edema, No Calf Tenderness Skin: - - resolved erythema Laboratory Results 06/25/20 05:25: WBC 14.7 H, RBC 3.77 L, Hgb 12.4 L, Hct 37.6 L, MCV 99.7 H, MCH 32.9 H, MCHC 33.0, RDW Std Deviation 49.7 H, RDW Coeff of Cameron 13.6, Plt Count 245, MPV 9.2 06/25/20 05:25: Sodium 139, Potassium 3.8, Chloride 109 H, Carbon Dioxide 25.0, Anion Gap 5, BUN 22 H, Creatinine 0.92, Estim Creat Clear Calc 57.56, Est GFR (MDRD) Af Amer 102, Est GFR (MDRD) Non-Af 84, BUN/Creatinine Ratio 23.8 H, Glucose 104, Calcium 8.1 L Current Medications Acetaminophen (Tylenol) 650 mg PO Q6H PRN PRN PRN Reason: Pain Score 1-10/Temp > 100.7 F Last Admin: 06/24/20 02:43 Dose: 650 mg Documented by: Amlodipine Besylate (Norvasc) 5 mg PO DAILY [facility] Last Admin: 06/25/20 09:23 Dose: 5 mg Documented by: Aspirin (Aspirin, Baby) 81 mg PO DAILY@0800 [facility] Last Admin: 06/25/20 07:56 Dose: 81 mg Documented by: Atorvastatin Calcium (Lipitor) 10 mg PO QHS [facility] Last Admin: 06/24/20 21:06 Dose: 10 mg Documented by: Enoxaparin Sodium (Lovenox) 40 mg SC DAILY [facility] Last Admin: 06/25/20 09:27 Dose: 40 mg Documented by: Hydrochlorothiazide () 12.5 mg PO DAILY [facility] Last Admin: 06/25/20 09:23 Dose: 12.5 mg Documented by: Sodium Chloride () 1,000 mls @ 100 mls/hr IV .Q10H [facility] Last Infusion: 06/25/20 11:18 Dose: Infused Documented by: Ceftriaxone Sodium 2 gm/ (Sodium Chloride) 50 mls @ 100 mls/hr IV Q24 [facility] Last Infusion: 06/25/20 10:00 Dose: Infused Documented by: Lisinopril (Zestril) 40 mg PO DAILY [facility] Last Admin: 06/25/20 09:23 Dose: 40 mg Documented by: Melatonin (Melatonin) 3 mg PO QHS PRN PRN PRN Reason: INSOMNIA Last Admin: 06/24/20 21:10 Dose: 3 mg Documented by: Ondansetron HCl (Zofran) 4 mg IV Q8H PRN PRN PRN Reason: NAUSEA/VOMITING Oxcarbazepine (Trileptal) 300 mg PO TID [facility] Last Admin: 06/25/20 06:29 Dose: 300 mg Documented by: Oxymetazoline HCl (Afrin (Bkc)) 1 spray NASAL BID PRN PRN Reason: SINUS CONGESTION Last Admin: 06/24/20 21:10 Dose: 1 spray Documented by: Sodium Chloride () 10 - 40 ml IV UD PRN PRN Reason: SALINE FLUSH Discharge Diet: Low fat/ Low Cholesterol Discharge Activity: Return to Normal Activity Call your doctor if you observe: Fever of 101 or Higher, Shortness of breath, Dizziness, Fainting spells, Chest pain Disposition: Home Minutes spent on discharge:: 35 Medical Necessity - Tobacco Use Smoking Status: Former smoker Tobacco Use: Cigarettes Meaningful Use Info Meaningful Use Diagnoses (Choose all that apply): None applicable Inpatient E&M: 06842 Disch Hosp
--- NOTE | 2020-06-25 11:00 | CASEMGMT ---
CINDY IRVIN assessment: Face to Face with patient for initial transition planning/care coordination assessment. CINDY IRVIN introduced self and role at [facility], pt voices understanding and consents to assessment at this time. Pt is sitting up in chair in no distress at this time. Pt is A/Ox4 at this time but is forgetful about PCP and pharmacy at this time. Care providers, pharmacy, and demographics verified at this time. Presentation: Per family, patient was confused around 1700 but now seems better Admitting dx: Sepsis from cellulitis PCP: Pt cannot remember name but states the PCP is in [place] behind the hospital. Specialists: Pt states no current specialists. Preferred Pharmacy: Pt states cannot remember name of pharmacy at this time. Insurance: [employer] aid Prescription Benefit: Self pay Living Will/HPOA: Pt states does not have a LW/HPOA and declines AD info at this time. LNOK: Leidy Handy, daughter Living Arrangements: Pt states lives with and children in 2 story home and states no concerns at home at this time. Pt states is independent with ADL's. Transportation: Pt states no transportation concerns at this time. DME/HHC: Pt states no current DME or need for any at this time. Pt states no hx of HHC or SNF in the past. Pt states no concerns with going home at time of discharge. Pt states still works 3-4days/week. Pt states does not smoke cigarettes or drink ETOH. Pt states no further concerns/needs at this time. CM to follow for any further discharge planning/needs. Advised pt to ask for CM if any further questions/concerns/needs arise, voices understanding. Pt Goal: Home Plan[place] CINDY IRVIN
--- NOTE | 2020-06-25 11:12 | PHA.DC.MC ---
Pharmacy Service has performed discharge medication reconciliation and counseling for this patient. The patient was counseled on the following discharge medications and changes in medications for homegoing were reviewed. 1. DURICEF The Reason for Use, instructions for use, and potential side effects were reviewed for all new medications. The patient's questions regarding all of their medications were answered. The patient demonstrated some understanding but would benefit from further education and reinforcement. Home Medications Amlodipine [Norvasc] 5 mg PO DAILY 06/23/20 Aspirin [Aspirin, Baby] 81 mg PO DAILY@0800 06/23/20 Atorvastatin Calcium 10 mg PO DAILY 06/23/20 Hydrochlorothiazide [Hctz] 12.5 mg PO DAILY 06/23/20 Lisinopril 40 mg PO DAILY 06/23/20 Oxcarbazepine 300 mg PO TID 06/23/20 Cefadroxil Hydrate [Duricef] 1,000 mg PO BID 7 Days #28 cap 06/25/20 The patient's discharge medication list was reviewed for discrepancies and discrepancies were resolved.
[2020-06-25 12:10] VITALS: BP 125/53; PULSE 73; RESP 20; TEMP 36.8; O2SAT 95
[2020-06-25 14:14] LABS: Pathologist Review Reviewed
[2020-06-25 14:15] LABS: Pathologist Review Reviewed
== END 2020-06-25 12:27 | disposition home or self-care (01) | DRG 872 ==
LOC: ED 22:31 → PCU 06-24 02:23
PROVIDERS: Nurse Practitioner Family; Admitting Provider Family Medicine; Emergency Provider Emergency Medicine
DX: A41.9 Sepsis, unspecified organism (principal); L03.115 Cellulitis of right lower limb; G93.49 Other encephalopathy; G81.91 Hemiplegia, unspecified affecting right dominant side; G40.909 Epilepsy, unspecified, not intractable, without status epilepticus; I10 Essential (primary) hypertension; E78.5 Hyperlipidemia, unspecified; Z79.82 Long term (current) use of aspirin; Z79.899 Other long term (current) drug therapy; Z87.891 Personal history of nicotine dependence
CPT/HCPCS: 36415; 70450; 71045; 80048; 80053; 81001; 83605; 84484; 85025; 85027; 85610; 85730; 87040; 87086; 87088; 93005; 97162; 97166; 99285; J7030; A4216; J0696

== ENCOUNTER 2022-09-27 23:20 | Emergency (ER) | payer OTHER, SELFPAY ==
[2022-09-27 23:20] VITALS: BP 195/84; PULSE 11; RESP 16; TEMP 36.6; O2SAT 94; BMI 39.4
--- NOTE | 2022-09-27 23:31 | CT_ITS ---
INDICATION: altered mental status EXAMINATION: CT BRAIN - CT Head or Brain W/O Contrast Injection TECHNIQUE: Multiple axial images were obtained of the head without intravenous contrast. A radiation dose optimization technique was used for this scan. IV Contrast dosage and agent: None. COMPARISON: CT head 06/23/2020 FINDINGS: Image degradation from patient motion. BRAIN: No acute bleed. No edema. Decreased attenuation in the periventricular white matter bilaterally. Old lacunar infarcts bilateral basal ganglia. Bro-white matter differentiation is maintained. Arterial calcifications. VENTRICLES AND SULCI: The ventricles are not dilated. The sulci are prominent. EXTRA-AXIAL: No hemorrhage, fluid collection, or mass. CALVARIUM / SKULL BASE: Unremarkable. FACE/SINUSES: The maxillary sinuses and left frontal sinus are nearly completely opacified, unchanged. SOFT TISSUES: Unremarkable. CT/Brain/Head without Contrast IMPRESSION: No acute abnormality. Chronic microvascular ischemic disease. Chronic sinus disease. Electronically Signed: Sumi Steele MD at 0:38 EST ,
--- NOTE | 2022-09-27 23:31 | EKG12_ITS ---
Test Reason : Blood Pressure : / mmHG Vent. Rate : 097 BPM Atrial Rate : 097 BPM P-R Int : 192 ms QRS Dur : 134 ms QT Int : 348 ms P-R-T Axes : 074 034 056 degrees QTc Int : 441 ms Normal sinus rhythm Right bundle branch block Abnormal ECG Confirmed by NICK VALENTINO, AYLA ([id number]), news videotape editor KAILA WYATT ([id number]) on 09/30/2022 10:41:57 AM Referred By: Confirmed By:AYLA ROMERO MD
--- NOTE | 2022-09-27 23:33 | EX.ED.DYSGE1 ---
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 This is unusual for him. The last time he was here he had cellulitis this was 2 years ago, that is not bothering him now. He has had incontinence of urine couple times today. 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 Tonight he was so weak that he was not able to stand on his own which is also unusual, hence bringing him into the ED for evaluation. Patient has had no new cough or known fevers, he vomited once tonight but denies any nausea now. Limited review of systems from the patient due to the confusion. [facility] Medical History (Updated 09/28/22 @ 01:[address] Pablo Britton MD) Infantile paralysis Stroke Home Medications amlodipine 5 mg tablet 5 mg PO DAILY 06/23/20 [History Last Taken Unknown] aspirin 81 mg chewable tablet 81 mg PO DAILY@0800 06/23/20 [History Last Taken Unknown] atorvastatin 10 mg tablet 10 mg PO DAILY 06/23/20 [History Last Taken Unknown] hydrochlorothiazide 25 mg tablet 12.5 mg PO DAILY 06/23/20 [History Last Taken Unknown] lisinopril 40 mg tablet 40 mg PO DAILY 06/23/20 [History Last Taken Unknown] oxcarbazepine 300 mg tablet 300 mg PO TID 06/23/20 [History Last Taken Unknown] oseltamivir 75 mg capsule (Tamiflu) 75 mg PO BID 5 days #10 caps 09/28/22 [Rx Last Taken Unknown] Allergy/AdvReac Type Severity Reaction Status Date / Time No Known Allergies Allergy Verified 09/27/22 23:22 Social History Smoking Status: Former smoker ROS ROS ED Review of Systems ROS Unobtainable: due to mental status Constitutional Constitutional ED: Reports as per HPI and weakness Eyes Eyes: Denies change in vision ENT ENT ED: Denies sore throat Cardiovascular Cardiovascular: Denies chest pain Respiratory/Chest Respiratory/Chest: Denies cough or dyspnea Gastrointestinal Gastrointestinal: Reports vomiting; Denies abdominal pain Genitourinary Genitourinary ED: Reports as per HPI; Denies hematuria Musculoskeletal Musculoskeletal: Denies back pain or neck pain Neurologic Neurologic: Reports as per HPI and confusion; Denies headache(s) EXAM Physical Exam Const Vital Signs: 09/27/22 23:20 09/28/22 00:22 09/28/22 00:22 Temperature 97.8 F 98.9 F 98.9 F Temperature Source Temporal Oral Oral Pulse Rate 11 L 10 L 101 H Respiratory Rate 16 26 H 28 H Blood Pressure 195/84 H 159/67 H 159/67 H Blood Pressure Mean 121 97 97 Pulse Ox 94 94 94 Oxygen Delivery Method Room Air Room Air Room Air 09/28/22 00:24 Temperature Temperature Source Pulse Rate Respiratory Rate Blood Pressure Blood Pressure Mean Pulse Ox Oxygen Delivery Method Room Air Positive well nourished and well developed General Appearance ED: well developed and NAD HEENT Reports moist mucous membranes normocephalic and atraumatic Eyes PERRL and EOMs intact bilaterally Neck full ROM, no lymphadenopathy and supple Neck Narrative: No meningismus Resp normal respiratory effort Auscultation: wheezes expiratory wheezes and throughout Cardio regular rate, regular rhythm and no murmurs GI non-tender and non-distended Auscultation: normoactive bowel sounds Palpation: soft Back/Spine no CVA tenderness General Back: other FROM Extremity normal to inspection General Extremety ED: Negative for edema, pulses abnormal or tenderness General Extremity: Negative for edema or pulses abnormal Neuro CN's II-XII intact bilaterally and no sensory deficits noted Neuro Narrative: Alert and oriented to person only. Basically giving one-word answers all questions and they are mostly yes or no. Moves all 4 extremities, very weak in his lower extremities, weaker in the right which is normal per family present. Sensorium / Orientation: awake, alert and orientation impaired Skin no wounds Skin Narrative: Patch approximately 8 cm long and 5 cm wide of dry scaly skin left anterior arora without any joint involvement, very mild erythema that does not [place] appears chronic, nontender. No lymphangitis. No abscess. No drainage from anywhere. No other areas of rash. MDM MDM MDM Narrative Medical decision making narrative: Broad differential here in this elderly acutely confused patient. He is very hypertensive 195/84, and considering hypertensive emergency while working him up he is given a dose of hydralazine 10 mg. I reviewed cardiac visits prior to ordering this, there is no echocardiogram present, and he does not have a systolic murmur to suggest aortic stenosis. He is mildly tachycardic, he has some wheezing throughout all lung chatman although he is not in respiratory distress and his family states this is his normal breathing, he does not have any known diagnosed COPD, however he smoked for a lot of years and quit about 6 years ago, so when considering the possibility of COPD being present, I opted to avoid medicines like labetalol so that he does not get worse. 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 Work-up is basically consistent with influenza and all else is negative except for some mild dehydration/elevation of BUN and creatinine. He was given some IV fluids. Family states they can get him to stand and walk with their assistance. His blood pressure was very high, 195/84. I gave him hydralazine as above, this came down to 159/67 no adverse events, on reevaluation it is 170/70. He is on lisinopril and amlodipine for blood pressure, family is not sure if he took it this morning or not, therefore I think he can continue taking his normal blood pressure medications and he can watch his blood pressure. I offered admission based on his confusion and weakness, but family declines and states they think they can handle him at home knowing it is influenza nothing else serious. I will put him on Tamiflu, given appropriate discharge instructions for follow-up and blood pressure recheck and they are comfortable with that plan. Lab Data Attestation: I reviewed the patient's lab results. Labs: Laboratory Results - last 24 hr 09/27/22 09/27/22 09/27/22 23:25 23:25 23:25 WBC 9.2 RBC 4.26 L Hgb 13.9 Hct 42.1 MCV 98.8 H MCH 32.6 H MCHC 33.0 RDW Std Deviation 48.9 H RDW Coeff of Cameron 13.5 Plt Count 288 MPV 9.3 Immature Gran % (Auto) 1.100 H Neut % (Auto) 81.3 H Lymph % (Auto) 3.4 L Sharp % (Auto) 12.8 H Eos % (Auto) 0.9 Baso % (Auto) 0.5 Absolute Neuts (auto) 7.5 Absolute Lymphs (auto) 0.31 L Nucleated RBC % 0 Differential Comment SCANNED PT 14.5 INR 1.2 APTT 33.1 Sodium 139 Potassium 4.2 Chloride 110 H Carbon Dioxide 24.0 Anion Gap 5 BUN 35 H Creatinine 1.37 H Estim Creat Clear Calc 35.41 Est GFR (MDRD) Af Amer 64 Est GFR (MDRD) Non-Af 53 L BUN/Creatinine Ratio 25.5 H Glucose 144 H Lactic Acid Calcium 8.5 Total Bilirubin 0.20 AST 19 ALT 25 Alkaline Phosphatase 105 Troponin I High Sens 30 Total Protein 7.2 Albumin 3.5 Globulin 3.7 Albumin/Globulin Ratio 0.9 Urine Color Urine Clarity Urine pH Ur Specific [place] Urine Protein Urine Glucose (UA) Urine Ketones Urine Occult Blood Urine Nitrite Urine Bilirubin Urine Urobilinogen Ur Leukocyte Esterase Urine RBC Urine WBC Ur Squamous Epith Cells Urine Bacteria Urine Mucus 09/27/22 09/28/22 23:40 00:45 WBC RBC Hgb Hct MCV MCH MCHC RDW Std Deviation RDW Coeff of Cameron Plt Count MPV Immature Gran % (Auto) Neut % (Auto) Lymph % (Auto) Sharp % (Auto) Eos % (Auto) Baso % (Auto) Absolute Neuts (auto) Absolute Lymphs (auto) Nucleated RBC % Differential Comment PT INR APTT Sodium Potassium Chloride Carbon Dioxide Anion Gap BUN Creatinine Estim Creat Clear Calc Est GFR (MDRD) Af Amer Est GFR (MDRD) Non-Af BUN/Creatinine Ratio Glucose Lactic Acid 1.4 Calcium Total Bilirubin AST ALT Alkaline Phosphatase Troponin I High Sens Total Protein Albumin Globulin Albumin/Globulin Ratio Urine Color Yellow Urine Clarity Clear Urine pH 5.0 Ur Specific [place] 1.015 Urine Protein 30 H Urine Glucose (UA) Normal Urine Ketones Negative Urine Occult Blood 25 H Urine Nitrite Negative Urine Bilirubin Negative Urine Urobilinogen Normal Ur Leukocyte Esterase Negative Urine RBC 0 SEEN Urine WBC 0 SEEN Ur Squamous Epith Cells 0 SEEN Urine Bacteria 0 SEEN Urine Mucus 0 SEEN Radiography Chest X-Ray - ED: 1 View, Read by ED Physician, No Acute Disease and Chronic Changes Diagnostic Testing: Clinical Impression(s) from Imaging Studies Brain CT 09/27/22 23:31 IMPRESSION: No acute abnormality. Chronic microvascular ischemic disease. Chronic sinus disease. Electronically Signed: Sumi Steele MD at 0:38 EST , Chest X-Ray 09/27/22 23:50 IMPRESSION: Small left pleural effusion versus pleural thickening. Electronically Signed: Sumi Steele MD at 0:24 EST , Rhythm Strip Rhythm Strip: Sinus Tach Rate: 110 Ectopy: None EKG Initial EKG: Attestation: I personally reviewed and interpreted this EKG as follows: Interpretation: Sinus Rhythm, No Acute Injury Pattern and RBBB Prior EKG tracings: available for review Prior: Unchanged Discharge Plan Triage Chief Complaint: Confusion ED Provider: Pablo Britton Dx/Rx/DC Orders Clinical Impression: Influenza A, Delirium due to another medical condition, Mild dehydration, Accelerated hypertension Instructions: ED Influenza (Adult) Prescriptions: New oseltamivir [Tamiflu] 75 mg capsule 75 mg PO BID 5 Days Qty: 10 0RF No Action atorvastatin 10 MG tablet 10 mg PO DAILY oxcarbazepine 300 MG tablet 300 mg PO TID amlodipine 5 MG tablet 5 mg PO DAILY aspirin 81 MG tablet,chewable 81 mg PO DAILY@0800 hydrochlorothiazide 25 MG tablet 12.5 mg PO DAILY lisinopril 40 MG tablet 40 mg PO DAILY Primary Care Provider: Care Physician,No Primary Referrals: Doctor,Your [Non-Staff] - 3-5 Days Disposition Disposition: Home, Self Care
--- NOTE | 2022-09-27 23:50 | RAD_ITS ---
INDICATION: altered MS EXAMINATION/TECHNIQUE: X-RAY - XR Chest 1 View AP portable. 11:51 PM. COMPARISON: 06/23/2020 FINDINGS: LINES/DEVICES: None. LUNGS: No consolidation. Small left pleural effusion versus pleural thickening. No pneumothorax. MEDIASTINUM: The aorta is atherosclerotic. CARDIAC SILHOUETTE: Top normal size for technique. BONES AND SOFT TISSUES: Degenerative changes in the dorsal spine. RAD/Chest 1 View (Portable) IMPRESSION: Small left pleural effusion versus pleural thickening. Electronically Signed: Sumi Steele MD at 0:24 EST ,
[2022-09-27 23:53] LABS: Absolute Lymphocyte Count 0.31 X10^3/uL (0.83-4.51); Absolute Neutrophil Count 7.5 X10^3/uL (2.0-7.7); Basophil# 0.05 X10^3/uL; Basophil% 0.5 % (0-1); Eosinophil# 0.08 X10^3/uL; Eosinophils% 0.9 % (0-5); Hematocrit 42.1 % (40-54); Hemoglobin 13.9 g/dL (13.0-16.5); Lymphocyte # 0.31 X10^3/ul (0.83-4.51); Lymphocyte % 3.4 % (19-41); Mean Corpuscular Hgb 32.6 pg (27.0-32.0); Mean Corpuscular Volume 98.8 fL (80-94); Mean Platelet Vol. 9.3 fl (6.2-12.0); Monocyte# 1.18 X10^3/uL; Monocyte% 12.8 % (0-10); NRBC Flagged by Analyzer 0 % (0-5); Neutrophil # 7.52 X10^3/uL (2.7-7.7); Neutrophil % 81.3 % (47-70); POSITIVE DIFFERENTIAL YES; Platelet Count 288 K/mm3 (150-450); RBC Distribution Width CV 13.5 % (11.6-14.6); RBC Distribution Width SD 48.9 fl (35.1-43.9); Red Blood Count 4.26 M/mm3 (4.6-6.2); White Blood Count 9.2 K/mm3 (4.4-11.0)
[2022-09-27 23:58] LABS: International Normalized Ratio 1.2; Prothrombin Time (Protime)PT. 14.5 SECONDS (11.7-14.9)
[2022-09-27 23:59] LABS: Partial Thromboplast Time 33.1 Seconds (24.1-36.2)
[2022-09-28 00:04] LABS: Differential Indicated SCAN CRITERIA MET
[2022-09-28] MEDS: hydrALAZINE 20 MG/ML Vial 10 MG IV (00:20)
[2022-09-28 00:21] LABS: Lactic Acid 1.4 mmol/L (0.4-1.9)
[2022-09-28] MEDS: 0.9% Normal Saline 1,000 ML 150 ML IV (00:21)
[2022-09-28 00:22] VITALS: BP 159/67; PULSE 10; PULSE 101; RESP 26; RESP 28; TEMP 37.2; O2SAT 94
[2022-09-28 00:25] LABS: ALB/GLOB Ratio 0.9 RATIO (0.9-2.4); AST(SGOT) 19 U/L (15-37); Alanine Aminotransfer ALT/SGPT 25 U/L (16-61); Albumin, Serum 3.5 g/dL (3.2-5.0); Alkaline Phosphatase 105 U/L (45-117); Anion Gap 5 (5-15); BUN 35 mg/dL (7-18); BUN/Creat Ratio 25.5 RATIO (10-20); Calcium,Total 8.5 mg/dL (8.5-10.1); Chloride 110 mmol/L (98-107); Creatinine, Serum 1.37 mg/dL (0.70-1.30); EST Glomerular Filtration Rate 53 mL/min (>60); Est Glom Filt Rate - Afr Amer 64 mL/min (>60); Estimated Creatinine Clearance 35.41 ml/min; Globulin 3.7 g/dL (2.2-4.2); Glucose 144 mg/dL (74-106); Potassium 4.2 mmol/L (3.5-5.1); Protein, Total 7.2 g/dL (6.4-8.2); Sodium Level 139 mmol/L (136-145); Troponin-I HS 30 pg/mL (3.0-78.0)
[2022-09-28 00:49] LABS: Bacteria 0 SEEN /hpf (None Seen); Mucous, Urine 0 SEEN /hpf (<or=2+); Red Blood Cells-Urine 0 SEEN /hpf (0-5); Squamous Epithelial Cells - UA 0 SEEN /hpf (0-5); White Blood Cells 0 SEEN /hpf (0-5)
[2022-09-28 01:07] LABS: Differential Comment SCANNED
[2022-09-28 01:14] LABS: Color, Urine Yellow (Yellow); Glucose, Dipstick Normal (Normal); Ketone-Dipstick Negative (Negative); Leukocyte Esterase-Dipstick Negative /ul (Negative); Nitrite-Dipstick Negative (Negative); Occult Blood-Urine 25 /ul (Negative); Protein-Dipstick 30 mg/dl (Negative); Specific Gravity, Urine 1.015 (1.002-1.030); Urine Bilirubin Dipstick Negative (Negative); Urine Clarity Clear (Clear); Urine Urobilinogen Normal (Normal)
[2022-09-28] MEDS: Oseltamivir Phosphate 75 MG Capsule PO (01:44)
[2022-09-28 01:45] LABS: Blood Gas Specimen Type VEN; O2 Delivery Device Room Air; SITE L Brach; VBG BASE EXCESS -3 mmol/L (-1.0-3.5); VBG Bicarbonate 21 mmol/L (22-26); VBG PO2 37 mmHg (25-40); VBG SO2 72 % (50-70); VBG TCO2 22 mmol/L (23-33); VBG pCO2 32.1 mmHg (41-51); VBG pH 7.42 (7.32-7.42)
[2022-09-28 01:51] VITALS: BP 170/74; PULSE 103; RESP 17; O2SAT 95
== END 2022-09-28 01:53 | disposition home or self-care (01) ==
PROVIDERS: Emergency Provider Emergency Medicine; Visit Provider Emergency Medicine
DX: J10.1 Influenza due to other identified influenza virus with other respiratory manifestations (principal); R41.0 Disorientation, unspecified; E86.0 Dehydration; I10 Essential (primary) hypertension; Z86.73 Personal history of transient ischemic attack (TIA), and cerebral infarction without residual deficits; Z87.891 Personal history of nicotine dependence
CPT/HCPCS: 70450; 71045; 80053; 81001; 82803; 83605; 84484; 85025; 85610; 85730; 87040; 87086; 87428; 93005; 96361; 96374; 99282; J7030; J7050; A4216